=== PATIENT | female | born 1990 | race African-American/Black ===

== ENCOUNTER 2018-05-25 12:42 | Emergency (ER) | payer MEDICAID | END 2018-05-25 13:23 | disposition left against medical advice (07) | LOC: ER 12:42 | DX: S51.812A Laceration without foreign body of left forearm, initial encounter (principal); W45.8XXA Other foreign body or object entering through skin, initial encounter; Y93.89 Activity, other specified; Y92.89 Other specified places as the place of occurrence of the external cause; Y99.8 Other external cause status; Z53.21 Procedure and treatment not carried out due to patient leaving prior to being seen by health care provider ==